=== PATIENT | female | born 1995 | race Caucasian/White ===

== ENCOUNTER → 2018-09-10 15:07 | Outpatient (CLI) | payer BC, SELFPAY ==
[2014-11-28 13:01] VITALS: BMI 22.0
[2018-09-10 17:30] LABS: Hematocrit 33.2 % (37-47); Hemoglobin 10.4 g/dl (12.0-15.0); Mean Corp Hgb Conc 31.3 g/gl (32-36); Mean Corpuscular Volume 89.5 fL (81-99); Mean Platelet Vol. 8.5 fl (6.2-12.0); Platelet Count 615 K/mm3 (150-450); RBC Distribution Width CV 13.3 % (11.6-14.6); RBC Distribution Width SD 43.5 fl (35.1-43.9); Red Blood Count 3.71 M/mm3 (4.2-5.4); White Blood Count 11.9 K/mm3 (4.4-11.0)
[2018-09-10 17:32] LABS: Scan Indicated on CBC? Y/N NO
[2018-09-10 17:42] LABS: CRP 9.46 mg/L (0.0-3.0)
[2018-09-10 17:53] LABS: Erythrocyte Sedimentation Rate 40 mm/hr (0-20)
== END ==
PROVIDERS: Family Provider Family Medicine; PCP Family Medicine; Referring Provider Internal Medicine Gastroenterology; Visit Provider Internal Medicine Gastroenterology
DX: K52.9 Noninfective gastroenteritis and colitis, unspecified (principal)
CPT/HCPCS: 36415; 85027; 85652; 86140

== ENCOUNTER → 2018-09-17 13:17 | Outpatient (CLI) | payer BC, SELFPAY ==
[2014-11-28 13:01] VITALS: BMI 22.0
--- NOTE | 2018-09-17 | COLBX_PTH ---
PATIENT: MERRY HURTADO LOC: [facility] U#:[id number] AGE/SX: 30/F ROOM: RE09/17/[address]: Dr. Nikolay Valdes MD : 1995 BED: DIS: SPEC #: [id number] RECD: 09/17/18 12:58 STATUS: AMI SLADE #: [id number] LAURENT: 09/17/18 00:[address]: Nikolay Valdes DEPT: SURGICAL PATHOLOGY RECD BY: Gagandeep Morrissey ENTERED: 09/18/18 11:32 SP TYPE: COLON BX OTHR DR: Dr. Blayne Patel MD [facility] Tissues: A - Ileum, NOS B - Right colon C - Left colon D - Rectum, NOS Procedures: Surgery Specimen Level IV HEADER OPERATION: Colonoscopy with biopsy PRE-OP DIAGNOSIS: Ulcerative colitis / diarrhea TISSUE SUBMITTED: A - Terminal ileum biopsy, rule out Crohn's, B - Right colon biopsy, rule out Crohn's, C - Left colon biopsy, rule out Crohn's, D - Rectum biopsy, rule out Crohn's MICROSCOPIC DIAGNOSIS A. Terminal ileum, biopsy: Prominent benign appearing lymphoid aggregates. No evidence of enteritis. B. Right colon, biopsy: Focal acute colitis. See comment. C. Left colon, biopsy: Chronic active inflammatory bowel disease. See comment. D. Rectum, biopsy: No pathologic change. No evidence of colitis. Clinical correlation is necessary. AM:luis 09/19/18 COMMENT B. Sections show focal cryptitis and crypt abscesses. Fissures are not identified. No granulomas are seen. Transmural lymphoid aggregates are not present. Features of classic Crohn's enteritis are not present. Clinical correlation is suggested. C. Sections show cryptitis, crypt abscesses, expansion of lamina propria by inflammatory cells and mucosal ulceration. The activity is moderate in intensity. There is no evidence of dysplasia. Jesse granulomas are not identified. The findings are consistent with chronic active inflammatory bowel disease. MICROSCOPIC DESCRIPTION Slides are reviewed. GROSS DESCRIPTION A - Received in fixative is one container labeled with the patient's name and designated terminal ileum. The specimen consists of multiple irregular fragments of light stevens soft tissue that in aggregate measure 1 x 0.4 x 0.1 cm. The specimen is totally submitted in one cassette. B - Received in fixative is one container labeled with the patient's name and designated right colon. The specimen consists of multiple irregular fragments of light stevens soft tissue that in aggregate measure 1.5 x 0.5 x 0.1 cm. The specimen is totally submitted in one cassette. C - Received in fixative is one container labeled with the patient's name and designated left colon. The specimen consists of multiple irregular fragments of light stevens soft tissue that in aggregate measure 1.7 x 0.5 x 0.1 cm. The specimen is totally submitted in one cassette. D - Received in fixative is one container labeled with the patient's name and designated rectum. The specimen consists of multiple irregular fragments of light stevens soft tissue that in aggregate measure 0.5 x 0.4 x 0.1 cm. The specimen is totally submitted in one cassette. / SJ:rg 09/18/18 TC:2 CPT: 02423 x4
== END ==
PROVIDERS: Family Provider Family Medicine; PCP Family Medicine; Referring Provider Internal Medicine Gastroenterology; Visit Provider Internal Medicine Gastroenterology
DX: K51.90 Ulcerative colitis, unspecified, without complications (principal); R19.7 Diarrhea, unspecified
CPT/HCPCS: 87493; 88305

== ENCOUNTER 2019-12-28 18:44 | Emergency (ER) | payer BC, SELFPAY ==
[2019-12-28 18:46] VITALS: BP 113/77; PULSE 125; RESP 18; TEMP 36.9; O2SAT 97; BMI 22.6
[2019-12-28 19:04] VITALS: BP 113/77; PULSE 125; RESP 18; TEMP 36.9; O2SAT 97
--- NOTE | 2019-12-28 19:05 | ED.DCSUM_ITS ---
History of Present Illness Chief Complaint: Nausea/Vomiting/Diarrhea Informant: Patient Onset: Weeks Narrative: Patient reports being diagnosed with moderate to severe ulcerative colitis. She is been on Humira for the past 4 weeks. She was also diagnosed with C. diffic ile about 6 weeks ago. She completed her antibiotics but never had a test of cure. She continues to have diarrhea that is worsened again over the past couple of days. She has also had epigastric pain with increased vomiting and retching. Today she noted a fever of 101. She was given ibuprofen prior to arrival. - Past Medical History (1) Ulcerative colitis Status: Chronic (2) C. difficile colitis Status: Resolved Past Medical History - Allergies and Home Meds Allergies/Adverse Reactions: Allergies No Known Allergies Allergy (Verified 12/28/19 18:46) Primary Care Physician: Blayne Patel MD [STAFF PHYSICIAN] - Prior records reviewed: Yes Smoking Status: Never smoker Review of Systems General: Reports: Fever Eyes: Denies: Visual changes - bilaterally ENT: Denies: Bilateral ear pain Cardiovascular: Denies: Chest pain Respiratory: Denies: Dyspnea, Cough Gastrointestinal: Reports: Abdominal pain, Nausea, Vomiting, Diarrhea Genitourinary: Denies: Dysuria Musculoskeletal: Denies: Extremity Pain Skin: Denies: Rash Neurological: Denies: Headache Hematologic: Denies: Easy bruising, Easy bleeding Allergy: Denies: Uticaria Physical Exam Vital Signs/Narrative: Vital Signs Temp Pulse Resp BP Pulse Ox 12/28/19 18:46 98.5 F 125 H 18 113/77 97 Inital Vital Signs reviewed: Yes General: Well nourished, Well developed Head: Normocephalic ENT: Moist mucous membranes Neck: Supple Cardiovascular: Regular rate, Regular rhythm Respiratory: No distress, CTA bilaterally Abdomen: Soft, Nontender, Hypoactive bowel sounds Extremities: Nontender Skin: Normal color Neurological: Alert, Oriented x3 Psychological: Normal affect Diagnostic/Tx/Re-eval 12/28/19 Unknown Stool C. difficile DNA Amplification - Final 12/28/19 Unknown Stool Stool Lactoferrin - Final Laboratory Results 12/28/19 12/28/19 12/28/19 19:15 19:15 19:15 WBC 10.5 RBC 3.59 L Hgb 10.2 L Hct 32.5 L MCV 90.5 MCH 28.4 MCHC 31.4 L RDW Std Deviation 45.1 H RDW Coeff of Darling 13.5 Plt Count 610 H MPV 8.4 Immature Gran % (Auto) 0.500 Neut % (Auto) 53.7 Lymph % (Auto) 23.8 Bibb % (Auto) 15.1 H Eos % (Auto) 6.3 H Baso % (Auto) 0.6 Absolute Neuts (auto) 5.6 Absolute Lymphs (auto) 2.50 Nucleated RBC % 0 Differential Comment SCANNED Sodium 136 Potassium 3.2 L Chloride 103 Carbon Dioxide 27.0 Anion Gap 6 BUN 4 L Creatinine 0.78 Estim Creat Clear Calc 125.38 Est GFR (MDRD) Af Amer 118 Est GFR (MDRD) Non-Af 97 BUN/Creatinine Ratio 5.2 L Glucose 118 H Calcium 8.4 L Total Bilirubin 0.20 Direct Bilirubin 0.09 AST 10 L ALT 13 Alkaline Phosphatase 60 Total Protein 6.7 Albumin 2.5 L Globulin 4.2 Lipase 46 L Serum , Qual NEGATIVE Urine Color Urine Clarity Urine pH Ur Specific [place] Urine Protein Urine Glucose (UA) Urine Ketones Urine Occult Blood Urine Nitrite Urine Bilirubin Urine Urobilinogen Ur Leukocyte Esterase Urine RBC Urine WBC Ur Squamous Epith Cells Ur Transition Epith Cell Urine Bacteria Urine Mucus 12/28/19 20:35 WBC RBC Hgb Hct MCV MCH MCHC RDW Std Deviation RDW Coeff of Darling Plt Count MPV Immature Gran % (Auto) Neut % (Auto) Lymph % (Auto) Bibb % (Auto) Eos % (Auto) Baso % (Auto) Absolute Neuts (auto) Absolute Lymphs (auto) Nucleated RBC % Differential Comment Sodium Potassium Chloride Carbon Dioxide Anion Gap BUN Creatinine Estim Creat Clear Calc Est GFR (MDRD) Af Amer Est GFR (MDRD) Non-Af BUN/Creatinine Ratio Glucose Calcium Total Bilirubin Direct Bilirubin AST ALT Alkaline Phosphatase Total Protein Albumin Globulin Lipase Serum , Qual Urine Color Straw Urine Clarity Clear Urine pH 6.0 Ur Specific [place] 1.005 Urine Protein Negative Urine Glucose (UA) Normal Urine Ketones Negative Urine Occult Blood Negative Urine Nitrite Negative Urine Bilirubin Negative Urine Urobilinogen Normal Ur Leukocyte Esterase Negative Urine RBC 0 SEEN Urine WBC 0 SEEN Ur Squamous Epith Cells 0-5 SEEN Ur Transition Epith Cell 0-5 SEEN Urine Bacteria 0 SEEN Urine Mucus 0 SEEN - Medical Decision Making Patient was given IV fluids here. Test results are discussed with patient and mother at bedside. She will continue her pantoprazole but also be given some Pepcid as she still having epigastric pain with reflux symptoms. She will be given prescription for Zofran for home as well. ED Disposition - Plan for ED Patient: Disposition: Home or Assisted Living Diagnosis: Gastritis, Vomiting Instructions: ED Nausea Vomiting Adult, ED PEPTIC ULCER vs GASTRITIS Prescriptions: Famotidine [Pepcid] 20 mg PO BID #28 tablet Ondansetron [Zofran Odt] 4 mg PO Q8H PRN PRN #10 tablet PRN Reason: Nausea Referrals: Blayne Patel MD [STAFF PHYSICIAN] -
[2019-12-28 19:32] LABS: Absolute Neutrophil Count 5.6 X10^3/uL (2.0-7.7); Basophil# 0.06 X10^3/uL; Basophil% 0.6 % (0-1); Eosinophil# 0.66 X10^3/uL; Eosinophils% 6.3 % (0-5); Hematocrit 32.5 % (37-47); Hemoglobin 10.2 g/dL (12.0-15.0); Lymphocyte % 23.8 % (19-41); Mean Corp Hgb Conc 31.4 g/dL (32-36); Mean Corpuscular Hgb 28.4 pg (27.0-32.0); Mean Corpuscular Volume 90.5 fL (81-99); Mean Platelet Vol. 8.4 fl (6.2-12.0); Monocyte# 1.59 X10^3/uL; Monocyte% 15.1 % (0-10); NRBC Flagged by Analyzer 0 % (0-5); Neutrophil # 5.64 X10^3/uL (2.7-7.7); Neutrophil % 53.7 % (47-70); POSITIVE DIFFERENTIAL YES; Platelet Count 610 K/mm3 (150-450); RBC Distribution Width CV 13.5 % (11.6-14.6); RBC Distribution Width SD 45.1 fl (35.1-43.9); Red Blood Count 3.59 M/mm3 (4.2-5.4); White Blood Count 10.5 K/mm3 (4.4-11.0)
[2019-12-28 19:33] LABS: Differential Indicated SCAN CRITERIA MET
[2019-12-28] MEDS: 0.9% Normal Saline 1,000 ML 150 ML IV (19:38)
[2019-12-28 19:43] LABS: Internal QC Validated? YES +Cl - CLEAR BKGD; Pregnancy, Serum, hCG Quali. NEGATIVE Negative
[2019-12-28 19:50] LABS: AST(SGOT) 10 U/L (15-37); Alanine Aminotransfer ALT/SGPT 13 U/L (13-56); Albumin, Serum 2.5 g/dL (3.2-5.0); Alkaline Phosphatase 60 U/L (45-117); Anion Gap 6 (5-15); BUN 4 mg/dL (7-18); BUN/Creat Ratio 5.2 RATIO (10-20); Bilirubin, Direct 0.09 mg/dL (0.00-0.30); Calcium,Total 8.4 mg/dL (8.5-10.1); Chloride 103 mmol/L (98-107); Creatinine, Serum 0.78 mg/dL (0.55-1.02); EST Glomerular Filtration Rate 97 mL/min (>60); Est Glom Filt Rate - Afr Amer 118 mL/min (>60); Estimated Creatinine Clearance 125.38 ml/min; Globulin 4.2 g/dL (2.2-4.2); Glucose 118 mg/dL (74-106); Lipase 46 U/L (73-393); Potassium 3.2 mmol/L (3.5-5.1); Protein, Total 6.7 g/dL (6.4-8.2); Sodium Level 136 mmol/L (136-145)
[2019-12-28 19:53] LABS: Differential Comment SCANNED
[2019-12-28 20:40] LABS: Bacteria 0 SEEN /hpf (None Seen); Mucous, Urine 0 SEEN /hpf (<or=2+); Red Blood Cells-Urine 0 SEEN /hpf (0-5); White Blood Cells 0 SEEN /hpf (0-5)
[2019-12-28 20:43] LABS: Color, Urine Straw (Yellow); Glucose, Dipstick Normal (Normal); Ketone-Dipstick Negative (Negative); Leukocyte Esterase-Dipstick Negative /ul (Negative); Nitrite-Dipstick Negative (Negative); Occult Blood-Urine Negative /ul (Negative); Protein-Dipstick Negative (Negative); Specific Gravity, Urine 1.005 (1.002-1.030); Urine Bilirubin Dipstick Negative (Negative); Urine Clarity Clear (Clear); Urine Urobilinogen Normal (Normal)
[2019-12-28 20:58] LABS: Squamous Epithelial Cells - UA 0-5 SEEN /hpf (5-10); Transitional Epithelial - Ur 0-5 SEEN /hpf (0-5)
[2019-12-28] MEDS: Famotidine 20 MG Tablet 40 MG PO (22:24)
[2019-12-28 22:32] VITALS: BP 109/79; PULSE 88; RESP 17; O2SAT 99
== END 2019-12-28 22:33 | disposition home or self-care (01) ==
PROVIDERS: Emergency Provider Emergency Medicine
DX: K29.70 Gastritis, unspecified, without bleeding (principal); K51.90 Ulcerative colitis, unspecified, without complications; Z79.899 Other long term (current) drug therapy; Z86.19 Personal history of other infectious and parasitic diseases
CPT/HCPCS: 80048; 80076; 81001; 83630; 83690; 84703; 85025; 87177; 87209; 87493; 87506; 99284

== ENCOUNTER → 2022-08-26 | Outpatient (CLI) | payer BC, SELFPAY ==
[2022-08-26 12:24] LABS: Erythrocyte Sedimentation Rate 5 mm/hr (0-30)
[2022-08-26 12:25] LABS: Hematocrit 42.2 % (37-47); Hemoglobin 13.5 g/dL (12.0-15.0); Mean Corpuscular Hgb 30.3 pg (27.0-32.0); Mean Corpuscular Volume 94.8 fL (81-99); Mean Platelet Vol. 10.7 fl (6.2-12.0); Platelet Count 312 K/mm3 (150-450); RBC Distribution Width CV 12.5 % (11.6-14.6); RBC Distribution Width SD 43.5 fl (35.1-43.9); Red Blood Count 4.45 M/mm3 (4.2-5.4); White Blood Count 10.6 K/mm3 (4.4-11.0)
[2022-08-26 12:58] LABS: ALB/GLOB Ratio 1.2 RATIO (0.9-2.4); AST(SGOT) 16 U/L (15-37); Alanine Aminotransfer ALT/SGPT 22 U/L (13-56); Albumin, Serum 4.2 g/dL (3.2-5.0); Alkaline Phosphatase 57 U/L (45-117); Anion Gap 5 (5-15); BUN 8 mg/dL (7-18); BUN/Creat Ratio 10.9 RATIO (10-20); CRP < 2.90 mg/L (0.0-3.0); Calcium,Total 9.4 mg/dL (8.5-10.1); Chloride 109 mmol/L (98-107); Creatinine, Serum 0.74 mg/dL (0.55-1.02); EST Glomerular Filtration Rate 101 mL/min (>60); Est Glom Filt Rate - Afr Amer 122 mL/min (>60); Globulin 3.5 g/dL (2.2-4.2); Glucose 88 mg/dL (74-106); Potassium 3.8 mmol/L (3.5-5.1); Protein, Total 7.7 g/dL (6.4-8.2); Sodium Level 141 mmol/L (136-145)
== END | disposition home or self-care (01) ==
LOC: MTLAB 10:38
PROVIDERS: PCP Family Medicine; Referring Provider Internal Medicine Gastroenterology; Visit Provider Internal Medicine Gastroenterology
DX: K50.90 Crohn's disease, unspecified, without complications (principal)
CPT/HCPCS: 36415; 80053; 85027; 85652; 86140

== ENCOUNTER → 2022-10-03 | Outpatient (CLI) | payer BC, SELFPAY ==
[2022-10-04 13:51] LABS: Chlamydia Trachomatis by PCR Negative (Negative); Neisserai gonorrhoeae by PCR Negative (Negative); Probe Check PASS; Sample Adequacy Control PASS; Specimen Processing Control PASS
[2022-10-10 12:31] LABS: HPV Reflexed? NOT INDICATED
== END | disposition home or self-care (01) ==
PROVIDERS: PCP Family Medicine; Referring Provider Registered Nurse; Visit Provider Registered Nurse
DX: Z12.4 Encounter for screening for malignant neoplasm of cervix (principal); Z11.3 Encounter for screening for infections with a predominantly sexual mode of transmission
CPT/HCPCS: 87491; 87591; 88175; G0145

== ENCOUNTER 2023-11-12 18:05 | Emergency (ER) | payer BC, SELFPAY ==
[2023-11-12 18:06] VITALS: BP 116/79; PULSE 92; RESP 18; TEMP 36.1; O2SAT 94; BMI 22.8
--- NOTE | 2023-11-12 18:53 | EKG12_ITS ---
Test Reason : MENTAL HEALTH Blood Pressure : / mmHG Vent. Rate : 066 BPM Atrial Rate : 066 BPM P-R Int : 146 ms QRS Dur : 084 ms QT Int : 412 ms P-R-T Axes : 044 027 060 degrees QTc Int : 431 ms Normal sinus rhythm Normal ECG Confirmed by VONDA BROWNE, HEIDY ([id number]), legal editor YAJAIRA MERCADO ([id number]) on 11/14/2023 2:06:11 PM Referred By: Confirmed By:HEIDY FERRARI MD
--- NOTE | 2023-11-12 18:54 | EX.ED.VIS.PS ---
HPI HPI - Psych History of Present Illness Chief Complaint: Mental Health Associated Symptoms Associated Symptoms - Psych: Positive for Depressed, Change in sleeping and Hopelessness Narrative Narrative: 28-year-old female past medical history of ulcerative colitis in remission, depression taking Lexapro 20 mg daily, presents with increasing depression and suicidal ideation with plan. She lives with her best friend currently and states that their relationship has been strained. She finds herself crying almost every day and not being able to stop. It has been worse over the last 5 days but she states over the last few months she has felt increasingly more depressed. She endorses insomnia, perhaps decreased appetite. She has plan to sit in a car with a running in an enclosed space. She relates history that she had a suicide attempt by taking ibuprofen a few years ago. She has never been hospitalized for psychiatric reasons. She used to see a therapist in [place], but is unable to see them via telehealth because of certain laws. She was able to bring herself to the emergency department today. [facility] Medical History TIA (transient ischemic attack) Ulcerative colitis Abnormal Pap smear of cervix Home Medications ?Medication ?Instructions ?Recorded ?Last Taken ?Type norethindrone (contraceptive) 0.35 0.35 mg PO DAILY #84 tabs 03/15/23 Unknown Rx mg tablet escitalopram oxalate 20 mg tablet 20 mg PO DAILY 11/12/23 Unknown History vedolizumab 300 mg intravenous IV .[id number] 11/12/23 Unknown History solution (Entyvio) Allergy/AdvReac Type Severity Reaction Status Date / Time No Known Allergies Allergy Verified 11/12/23 18:06 Family History Mother Ovarian cancer Grandmother Ovarian cancer Social History Smoking Status: Current every day smoker tobacco type: e-cigarettes alcohol intake: never substance use type: does not use caffeine: Yes what type of physical activity do you participate in: walking frequency: 1-2 times per week seatbelt use: always do you feel safe at home: Yes ROS ROS ED ROS Narrative Constitutional: No fever, no chills. HEENT: No sore throat. No neck pain. No loss of vision. No rhinorrhea. Cardiovascular: No chest pain. No palpitations. No pedal edema. Respiratory: No cough, no shortness of breath. Abdominal: No abdominal pain. No nausea. No vomiting. Genitourinary: No dysuria. No hematuria. Musculoskeletal: No myalgias. No arthralgias. Neurologic: No headaches. No dizziness. No lightheadedness. Skin: No rash. No change in color. Psychiatric: Positive depression. No anxiety. Suicidal ideation with plan for carbon monoxide poisoning. Constant crying. Positive insomnia. EXAM Physical Exam Narrative Exam Narrative: Afebrile. Vital signs noted. HEENT: Normocephalic. Atraumatic. PERRL, EOMI. Neck soft and supple. No point tenderness or step off. Cardiovascular: Regular rate and rhythm. No murmurs, rubs, or gallops appreciated. Respiratory: No tachypnea. Lungs clear to auscultation bilaterally. Gastrointestinal: Abdomen soft, nontender, with normoactive bowel sounds. No rebound or guarding. Neurological: Awake. Alert. Nonfocal, nonlateralizing. Skin: No rash. Normal color. No pallor. Musculoskeletal: No pedal edema. Full range of motion extremities. Psychiatric: Depressed affect. Cries on examination. Suicidal thoughts with plan for carbon monoxide poisoning. Const Vital Signs: 11/12/23 18:06 11/12/23 19:06 Temperature 97 F L 97.5 F L Temperature Source Temporal Temporal Pulse Rate 92 70 Respiratory Rate 18 16 Blood Pressure 116/79 116/83 H Blood Pressure Mean 91 94 Pulse Ox 94 97 Oxygen Delivery Method Room Air Room Air MDM MDM MDM Narrative Medical decision making narrative: Patient states she vapes, and recently has done cocaine. Medical screening labs will be obtained as I do feel that she needs to be evaluated by the crisis counselor. EKG was obtained and interpreted by myself independently as normal sinus rhythm at 66 bpm without ectopy or acute ST changes. No STEMI. I reviewed her laboratory work and she does have a leukocytosis of 16.7 which I think is nonspecific, hemoglobin slightly hemoconcentrated at 15.9 with hematocrit 49.4. Platelet count normal at 327. Urine for drugs of abuse is positive for cocaine and cannabinoids. I had already ordered a TSH and a troponin. I reviewed her laboratory work and she does have a potassium low at 3.4, which was replaced orally with 40 mill equivalents, BUN normal at 7 with creatinine normal at 0.59. TSH normal at 1.51. High-sensitivity troponin is 7. Ethyl alcohol negative at 6.0. At this point in time, I feel she is medically cleared for evaluation by the crisis counselor. In discussion with the crisis counselor, as safety cannot be guaranteed, and she has ongoing suicidal ideation and depression. They recommended placement. As she is still pending placement, patient will be signed out to the overnight physician, Dr. Bruno Zuluaga, to make final disposition on this patient should she get a bed tonight. She is in stable condition. She has not required any medications as of yet. History & Record Review Discussion w/independent historian: Patient Additional record(s) reviewed:: Prior labs Lab Data Attestation: I reviewed the patient's lab results. Labs: Laboratory Results - last 24 hr 11/12/23 11/12/23 18:40 19:01 WBC 16.7 H RBC 5.18 Hgb 15.9 H Hct 49.4 H MCV 95.4 MCH 30.7 MCHC 32.2 RDW Std Deviation 46.4 H RDW Coeff of Darling 13.1 Plt Count 327 MPV 10.2 Immature Gran % (Auto) 0.300 Neut % (Auto) 66.6 Lymph % (Auto) 20.1 [place] % (Auto) 8.8 Eos % (Auto) 3.6 Baso % (Auto) 0.6 Absolute Neuts (auto) 11.1 H Absolute Lymphs (auto) 3.35 Nucleated RBC % 0 Sodium 137 Potassium 3.4 L Chloride 104 Carbon Dioxide 25.0 Anion Gap 8 BUN 7 Creatinine 0.59 Estim Creat Clear Calc 160.08 Est GFR (MDRD) Af Amer 157 Est GFR (MDRD) Non-Af 130 BUN/Creatinine Ratio 11.9 Glucose 94 Calcium 9.5 Troponin I High Sens 7 TSH 1.51 Serum , Qual NEGATIVE Urine Opiates Screen NEGATIVE Urine Methadone Screen NEGATIVE Ur Barbiturates Screen NEGATIVE Ur Phencyclidine Scrn NEGATIVE Ur Amphetamines Screen NEGATIVE MDMA (Ecstasy) Screen NEGATIVE U Benzodiazepines Scrn NEGATIVE Urine Cocaine Screen POSITIVE H U Cannabinoids Screen POSITIVE H Ur Drug Screen Comment Ethyl Alcohol 6.0 Discharge Plan Triage Chief Complaint: Mental Health ED Provider: Navarro Berman Dx/Rx/DC Orders Prescriptions: No Action escitalopram oxalate 20 mg tablet 20 mg PO DAILY Entyvio 300 mg recon soln IV .[id number] norethindrone (contraceptive) 0.35 mg tablet 0.35 mg PO DAILY Qty: 84 4RF Rx Instructions: continuous use Primary Care Provider: Rosalba Tyler Referrals: Rosalba Tyler, [Primary Care Provider] - Print Language: Italian
[2023-11-12 19:06] VITALS: BP 116/83; PULSE 70; RESP 16; TEMP 36.4; O2SAT 97
[2023-11-12 19:09] LABS: Absolute Lymphocyte Count 3.35 X10^3/uL (0.83-4.51); Absolute Neutrophil Count 11.1 X10^3/uL (2.0-7.7); Basophil% 0.6 % (0-1); Eosinophils% 3.6 % (0-5); Hematocrit 49.4 % (37-47); Hemoglobin 15.9 g/dL (12.0-15.0); Lymphocyte # 3.35 X10^3/ul (0.83-4.51); Lymphocyte % 20.1 % (19-41); Mean Corp Hgb Conc 32.2 g/dL (32-36); Mean Corpuscular Hgb 30.7 pg (27.0-32.0); Mean Corpuscular Volume 95.4 fL (81-99); Mean Platelet Vol. 10.2 fl (6.2-12.0); Monocyte# 1.47 X10^3/uL; Monocyte% 8.8 % (0-10); NRBC Flagged by Analyzer 0 % (0-5); Neutrophil # 11.12 X10^3/uL (2.7-7.7); Neutrophil % 66.6 % (47-70); Platelet Count 327 K/mm3 (150-450); RBC Distribution Width CV 13.1 % (11.6-14.6); RBC Distribution Width SD 46.4 fl (35.1-43.9); Red Blood Count 5.18 M/mm3 (4.2-5.4); White Blood Count 16.7 K/mm3 (4.4-11.0)
[2023-11-12 19:22] LABS: Amphetamine Urine VISTA NEGATIVE (<1000 ng/mL); Barbiturate Urine VISTA NEGATIVE (< 200 ng/mL); Benzodiazepine Urine VISTA NEGATIVE (< 200 ng/mL); Cocaine Urine VISTA POSITIVE (< 300 ng/mL); Ecstacy Urine VISTA NEGATIVE (< 500 ng/mL); Methadone Urine VISTA NEGATIVE (< 300 ng/mL); PCP Urine VISTA NEGATIVE (< 25 ng/mL); THC Urine VISTA POSITIVE (< 50 ng/mL); Vista UDS pH Range 6
[2023-11-12 19:37] LABS: Internal QC Validated? YES +Cl - CLEAR BKGD; Pregnancy, Serum, hCG Quali. NEGATIVE Negative
[2023-11-12 19:44] LABS: Anion Gap 8 (5-15); BUN 7 mg/dL (7-18); BUN/Creat Ratio 11.9 RATIO (10-20); Calcium,Total 9.5 mg/dL (8.5-10.1); Chloride 104 mmol/L (98-107); Creatinine, Serum 0.59 mg/dL (0.55-1.02); EST Glomerular Filtration Rate 130 mL/min (>60); Est Glom Filt Rate - Afr Amer 157 mL/min (>60); Estimated Creatinine Clearance 160.08 ml/min; Glucose 94 mg/dL (74-106); Potassium 3.4 mmol/L (3.5-5.1); Sodium Level 137 mmol/L (136-145); Thyroid Stim Hormone (TSH) 1.51 uIU/mL (0.358-3.74); Troponin-I HS 7 pg/mL (3.0-54.0)
--- NOTE | 2023-11-12 19:46 | NURSING ---
called crisis and faxed chart
[2023-11-12] MEDS: Potassium Chloride Oral Tablet 20 MEQ 40 MEQ PO (20:06)
[2023-11-12] MEDS: LORazepam 0.5 MG Tablet PO (22:02)
[2023-11-12] MEDS: Acetaminophen 325 MG Tablet 650 MG PO (22:28)
[2023-11-13 02:48] VITALS: BP 108/78; PULSE 54; RESP 14; TEMP 35.8; O2SAT 96
--- NOTE | 2023-11-13 07:44 | ED.RN ---
Updated ETA. Physicians was called about updated ETA. New ETA time is 830. They will be sending there 800 crew
[2023-11-13 08:50] VITALS: BP 110/77; PULSE 55; RESP 14; TEMP 36.2; O2SAT 94
== END 2023-11-13 09:01 ==
PROVIDERS: Emergency Provider Emergency Medicine; PCP Family Medicine; Visit Provider Emergency Medicine
DX: F32.A Depression, unspecified (principal); F14.10 Cocaine abuse, uncomplicated; K51.90 Ulcerative colitis, unspecified, without complications; R45.851 Suicidal ideations; E87.6 Hypokalemia; F17.290 Nicotine dependence, other tobacco product, uncomplicated; Z79.899 Other long term (current) drug therapy; Z91.51 Personal history of suicidal behavior
CPT/HCPCS: 80048; 80307; 80320; 84443; 84484; 84703; 85025; 93005; 99285; G0480